=== PATIENT | male | born 1975 | race Caucasian/White ===

== ENCOUNTER 2018-11-08 08:32 | Emergency (ER) | payer BC, OTHER ==
--- NOTE | 2018-11-08 08:40 | ER Report ---
History and Physical Time Seen By MD: 08:40 Hx. of Stated Complaint: CHEST PAIN THAT WOKE HIM UP AT MIDNIGHT LAST NIGHT. UNABLE TO TAKE A DEEP BREATH WITHOUT SHARP PAIN HPI/ROS CHIEF COMPLAINT: Chest pain HISTORY OF PRESENT ILLNESS: Patient is a 43-year-old male here with complaints of chest pain which woke him up last night at approximately midnight, patient reports that the pain is sternal, worse with deep inspiration. Patient is hemodynamically stable at time of evaluation, initial EKG showed no ischemic changes or ST elevations. Patient is afebrile at time of evaluation. REVIEW OF SYSTEMS: Constitutional: No fever, no chills. Eyes: No discharge. ENT: No sore throat. Cardiovascular: + chest pain, no palpitations. Respiratory: No cough, no shortness of breath. Gastrointestinal: No abdominal pain, no vomiting. Genitourinary: No hematuria. Musculoskeletal: No back pain. Skin: No rashes. Neurological: No headache. Allergies: Coded Allergies: Penicillins (Verified Allergy, Intermediate, RASH , 11/08/18) Sulfa (Sulfonamide Antibiotics) (Verified Allergy, Intermediate, RASH , 11/08/18) Home Meds Reported Medications Paroxetine Hcl (PAXIL) 20 Mg Tablet, 40 MG PO QDAY, TAB 11/08/18 Constitutional Physical Exam General Appearance: The patient is alert, has no immediate need for airway protection and no signs of toxicity. No acute distress Eyes: Pupils equal and round no pallor or injection. ENT, Mouth: Mucous membranes are moist. Respiratory: There are no retractions, lungs are clear to auscultation. Cardiovascular: Regular rate and rhythm. [ ] Gastrointestinal: Abdomen is soft and non tender, no masses, bowel sounds normal. Neurological: No focal neurological deficits Skin: Warm and dry, no rashes. Musculoskeletal: Neck is supple non tender. Extremities are nontender, nonswollen and have full range of motion. DIFFERENTIAL DIAGNOSIS: After history and physical exam differential diagnosis was considered for chest pain including but not limited to myocardial ischemia, pericarditis pulmonary embolus, chest wall pain, pleural inflammation and pulmonary infectious causes. Medical Decision Making Data Points Laboratory Hematology Test 11/08/18 08:52 Red Blood Count 5.11 M/uL (4.00-5.60) Mean Corpuscular Volume 88.7 fL (80.0-96.0) Mean Corpuscular Hemoglobin 30.1 pg (26.0-33.0) Mean Corpuscular Hemoglobin Concent 33.9 g/dL (32.0-36.0) Red Cell Distribution Width 13.4 % (11.5-14.5) Mean Platelet Volume 8.2 fL (7.2-11.1) Neutrophils (%) (Auto) 62.7 % (39.4-72.5) Lymphocytes (%) (Auto) 25.1 % (17.6-49.6) Monocytes (%) (Auto) 10.2 % (4.1-12.4) Eosinophils (%) (Auto) 1.2 % (0.4-6.7) Basophils (%) (Auto) 0.8 % (0.3-1.4) Nucleated RBC Relative Count (auto) 0.0 /100WBC Neutrophils # (Auto) 3.3 K/uL (2.0-7.4) Lymphocytes # (Auto) 1.3 K/uL (1.3-3.6) Monocytes # (Auto) 0.5 K/uL (0.3-1.0) Eosinophils # (Auto) 0.1 K/uL (0.0-0.5) Basophils # (Auto) 0.0 K/uL (0.0-0.1) Nucleated RBC Absolute Count (auto) 0.00 K/uL D-Dimer Quantitative (PE/DVT) 0.41 ug/ml (0-0.50) Sodium Level 139 mmol/L (137-145) Potassium Level 4.3 mmol/L (3.5-5.0) Chloride Level 104 mmol/L (98-107) Carbon Dioxide Level 28 mmol/L (22-30) Blood Urea Nitrogen 19 mg/dl (9-21) Creatinine 1.00 mg/dl (0.66-1.25) Glomerular Filtration Rate Calc > 60.0 Random Glucose 88 mg/dl (75-110) Calcium Level 9.0 mg/dl (8.4-10.2) Total Bilirubin 0.4 mg/dl (0.2-1.3) Aspartate Amino Transf (AST/SGOT) 26 U/L (0-35) Alanine Aminotransferase (ALT/SGPT) 24 U/L (0-56) Alkaline Phosphatase 60 U/L (0-126) Troponin I < 0.012 ng/ml Total Protein 7.3 g/dl (6.3-8.2) Albumin 4.3 g/dl (3.5-5.0) Chemistry Test 11/08/18 08:52 White Blood Count 5.2 k/uL (4.5-11.0) Red Blood Count 5.11 M/uL (4.00-5.60) Hemoglobin 15.4 g/dL (14.0-18.0) Hematocrit 45.3 % (42.0-52.0) Mean Corpuscular Volume 88.7 fL (80.0-96.0) Mean Corpuscular Hemoglobin 30.1 pg (26.0-33.0) Mean Corpuscular Hemoglobin Concent 33.9 g/dL (32.0-36.0) Red Cell Distribution Width 13.4 % (11.5-14.5) Platelet Count 233 K/uL (150-450) Mean Platelet Volume 8.2 fL (7.2-11.1) Neutrophils (%) (Auto) 62.7 % (39.4-72.5) Lymphocytes (%) (Auto) 25.1 % (17.6-49.6) Monocytes (%) (Auto) 10.2 % (4.1-12.4) Eosinophils (%) (Auto) 1.2 % (0.4-6.7) Basophils (%) (Auto) 0.8 % (0.3-1.4) Nucleated RBC Relative Count (auto) 0.0 /100WBC Neutrophils # (Auto) 3.3 K/uL (2.0-7.4) Lymphocytes # (Auto) 1.3 K/uL (1.3-3.6) Monocytes # (Auto) 0.5 K/uL (0.3-1.0) Eosinophils # (Auto) 0.1 K/uL (0.0-0.5) Basophils # (Auto) 0.0 K/uL (0.0-0.1) Nucleated RBC Absolute Count (auto) 0.00 K/uL D-Dimer Quantitative (PE/DVT) 0.41 ug/ml (0-0.50) Glomerular Filtration Rate Calc > 60.0 Calcium Level 9.0 mg/dl (8.4-10.2) Total Bilirubin 0.4 mg/dl (0.2-1.3) Aspartate Amino Transf (AST/SGOT) 26 U/L (0-35) Alanine Aminotransferase (ALT/SGPT) 24 U/L (0-56) Alkaline Phosphatase 60 U/L (0-126) Troponin I < 0.012 ng/ml Total Protein 7.3 g/dl (6.3-8.2) Albumin 4.3 g/dl (3.5-5.0) Coagulation Test 11/08/18 08:52 D-Dimer Quantitative (PE/DVT) 0.41 ug/ml EKG/Imaging EKG Interpretation PATIENT NAME: HIMANSHU POLO : 1975 MR: [id number] V: [id number] EXAM DATE: ORDERING PHYSICIAN: ELMA ANDRES TECHNOLOGIST: MC Marsh Reason : CP Blood Pressure : / mmHG Vent. Rate : 056 BPM Atrial Rate : 056 BPM P-R Int : 156 ms QRS Dur : 086 ms QT Int : 422 ms P-R-T Axes : 056 020 050 degrees QTc Int : 407 ms Sinus bradycardia Otherwise normal ECG No previous ECGs available Confirmed by PERRI PINEDA ([id number]) on 11/09/2018 12:06:21 AM Referred By: MCKENNA Confirmed By:PERRI PINEDA Imaging PATIENT NAME: Himanshu Polo : 1975 MR: [id number] V: [id number] EXAM DATE: [id number] ORDERING PHYSICIAN: ELMA ANDRES TECHNOLOGIST: [place] [facility] [place] : 1975 Visit/Account:[id number] Date of Sevice: 11/08/2018 CHEST PA LAT COMPARISONS: None. ADDITIONAL PERTINENT HISTORY: Chest pain for one day, left-sided. FINDINGS: Cardiomediastinal silhouette: Negative. Pulmonary vasculature: Negative. Lung alanis: Negative. Pleural spaces: Negative. Osseous structures: Negative. Surrounding soft tissues: Negative. IMPRESSION: No evidence of acute cardiopulmonary disease. ED Course/Re-evaluation ED Course Patient is a 43-year-old male here with complaints of chest pain acute onset which woke him up around midnight. EKG was unremarkable no ischemic changes, troponin, d-dimer were negative, chest x-ray was clear. Patient was recommended to follow up with PCP in the next 24 hours, return precautions provided. Decision to Disposition Date: Nov 08, 2018 Decision to Disposition Time: 09:54 Depart Departure Latest Vital Signs Impression: Primary Impression: Chest pain Condition: Improved Disposition: HOME OR SELF-CARE Referrals: SAFIA VINCENT MD (PCP) Patient Instructions: Chest Wall Pain (ED) Additional Instructions: Please follow-up with your primary care doctor in the next 2-4 days. Please return immediately if you develop fevers, cough, nausea, vomiting, worsening chest pain. ELMA ANDRES DO Nov 08, 2018 08:40
[2018-11-08] MEDS ORDERED: PARO-243 PO (08:47)
[2018-11-08 09:04] LABS: PLATELET COUNT, AUTOMATED 233 K/uL (150-450)
[2018-11-08 09:30] VITALS: BP 123/74
--- NOTE | 2018-11-08 09:35 | RADIOLOGY IMAGING REPORT ---
FACILITY: [facility] - [place] PATIENT NAME: Himanshu Polo : 1975 MR: [id number] V: [id number] EXAM DATE: ORDERING PHYSICIAN: ELMA ANDRES TECHNOLOGIST: Location: [facility] Patient: Himanshu Polo : 1975 Visit/Account:[id number] Date of Sevice: 11/08/2018 CHEST PA LAT COMPARISONS: None. ADDITIONAL PERTINENT HISTORY: Chest pain for one day, left-sided. FINDINGS: Cardiomediastinal silhouette: Negative. Pulmonary vasculature: Negative. Lung alanis: Negative. Pleural spaces: Negative. Osseous structures: Negative. Surrounding soft tissues: Negative. IMPRESSION: No evidence of acute cardiopulmonary disease. Report Dictated By: Justo Graham MD at 11/08/2018 9:30 AM Report E-Signed By: Justo Graham MD at 11/08/2018 9:31 AM WSN:[id number]
--- NOTE | 2018-11-08 13:41 | EKG ---
[place] [facility] [place] NAME: AYDE SOMMER : [id number] MR: [id number] V: [id number] EXAM DATE: ORDERING PHYSICIAN: ELMA ANDRES TECHNOLOGIST: MC Marsh Reason : CP Blood Pressure : / mmHG Vent. Rate : 056 BPM Atrial Rate : 056 BPM P-R Int : 156 ms QRS Dur : 086 ms QT Int : 422 ms P-R-T Axes : 056 020 050 degrees QTc Int : 407 ms Sinus bradycardia Otherwise normal ECG No previous ECGs available Confirmed by PERRI PINEDA ([id number]) on 11/09/2018 12:06:21 AM Referred By: MCKENNA Confirmed By:PERRI PINEDA
== END 2018-11-08 10:20 | disposition home or self-care (01) ==
LOC: ER 08:44
DX: R07.9 Chest pain, unspecified (principal)
CPT/HCPCS: 71046; 82040; 82247; 82310; 82374; 82435; 82565; 82947; 84075; 84132; 84155; 84295; 84450; 84460; 84484; 84520; 85025; 85379; 93005; 99284